=== PATIENT | female | born 1930 | race Caucasian/White ===

== ENCOUNTER 2020-10-30 07:06 | Inpatient (IN) | payer OTHER ==
[~2020-10-30] VITALS: Ht 162.6 cm; Wt 34.5 kg
[2020-10-30] MEDS ORDERED: IV NORMAL SALINE 500 ML BAG IV ONE (07:30)
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
--- NOTE | 2020-10-30 08:00 | NUR ---
[employer] HERE TO INVESTIGATE THE CASE
[2020-10-30 08:42] LABS: BASOPHILS % (AUTO) 0.8 % (0.0-2.0); EOSINOPHILS % (AUTO) 0.1 % (0.0-7.0); HEMATOCRIT 43.8 % (31.2-41.9); HEMOGLOBIN 14.4 g/dL (10.9-14.3); LYMPHOCYTES # (AUTO) 0.7 K/uL (20.0-40.0); LYMPHOCYTES % (AUTO) 20.1 % (20.5-51.5); MEAN CORPUSCULAR HEMOGLOBIN 30.9 uug (24.7-32.8); MEAN CORPUSCULAR HGB CONC 33 g/dL (32.3-35.6); MEAN CORPUSCULAR VOLUME 93.8 fL (75.5-95.3); MONOCYTES # (AUTO) 0.4 K/uL (2.0-10.0); MONOCYTES % (AUTO) 13.2 % (0.0-11.0); NEUTROPHILS # (AUTO) 2.2 K/uL (1.8-8.9); NEUTROPHILS % (AUTO) 65.8 % (38.5-71.5); PLATELET COUNT (AUTO) 82 K/uL (179-408); RED BLOOD CELL COUNT(AUTO) 4.67 MIL/uL (3.63-4.92); WHITE BLOOD COUNT (AUTO) 3.3 K/uL (3.8-11.8)
[2020-10-30 08:57] LABS: POTASSIUM 3.7 mmol/L (3.5-5.1)
--- NOTE | 2020-10-30 09:03 | NUR ---
PT REFUSES BREAKFAST ,REQUESTING ONLY TEA. PROVIDED.
--- NOTE | 2020-10-30 09:14 | NUR ---
Pt is unable to recall any of her meds and after multiple calls to Pt's daughter, unable to speak to her.
[2020-10-30 09:18] LABS: BILIRUBIN,TOTAL 0.8 mg/dL (0.2-1.0); TOTAL PROTEIN, SERUM 5.6 g/dL (6.4-8.2)
[2020-10-30] MEDS ORDERED: DILTIAZEM HCL 25 MG IV IV ONE (09:30)
[2020-10-30] MEDS ORDERED: DILTIAZEM HCL 25 MG IV ONE (09:30)
--- NOTE | 2020-10-30 10:53 | NUR ---
codie bob np atbedside, placed [facility] madi.
--- NOTE | 2020-10-30 10:55 | NUR ---
NIALL BERNABE NP ADMITTED THE PT TO [facility].
[2020-10-30 11:53] LABS: *BILIRUBIN,URIN NEGATIVE (NEGATIVE); *BLOOD, URINE NEGATIVE (NEGATIVE); *CLARITY,URINE SLIGHTLY CLOUDY (CLEAR); *COLOR,URINE YELLOW (YELLOW); *KETONES,URINE TRACE (NEGATIVE); *UROBILINOGEN,URINE 0.2 E.U./dl (NORMAL); LEUKOCYTE ESTERASE ,URINE NEGATIVE (NEGATIVE); NITRITE, URINE NEGATIVE (NEGATIVE); PH,URINE 5.5 (5.0-8.0); UGLUCOSE NEGATIVE (NEGATIVE)
[2020-10-30] MEDS ORDERED: ALBUTEROL SULFATE 8 GM HFA.AER.AD IH PRN (12:00)
[2020-10-30] MEDS ORDERED: ONDANSETRON 4 MG/2 ML VIAL IV PRN (12:00)
[2020-10-30] MEDS: DOXYCYCLINE HYCLATE 100 MG TABLET PO SCH ×2 (12:45→22:28)
[2020-10-30] MEDS: ENSURE ENLIVE (VAN) 240 ML LIQUID PO SCH ×2 (12:45→17:00)
[2020-10-30] MEDS ORDERED: DOXYCYCLINE HYCLATE 100 MG TABLET ONE ×2 (12:50→22:26)
[2020-10-30] MEDS ORDERED: CEFTRIAXONE /D5W 50ML IVPB **ER PYXIS IV ONE (12:51)
[2020-10-30] MEDS: CEFTRIAXONE 1 G in IV DEXTROSE 5% 50 ML IV SCH (12:53)
[2020-10-30] MEDS: ENOXAPARIN SODIUM 30 MG/0.3 ML DISP.SYRIN SUBCUT SCH (12:56)
[2020-10-30] MEDS ORDERED: ENOXAPARIN SODIUM 30 MG/0.3 ML DISP.SYRIN ONE (13:00)
--- NOTE | 2020-10-30 13:00 | NUR ---
pt refused lunch, had one cup of ensure and some apple sauce
[2020-10-30] MEDS: IV NS 1000 ML 1,000 ML IV PRN (13:38)
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
[2020-10-30 16:54] LABS: BACTERIA,URINE FEW /HPF (NONE SEEN); RBC,URINE 0-3 /HPF (0-3); SQUAMOUS EPITHELIAL CELL,UR FEW /HPF (NONE SEEN); URINE AMORPHOUS URATE FEW /HPF; WBC,URINE NONE SEEN /HPF (0-3)
--- NOTE | 2020-10-30 18:06 | NUR ---
pt refused dinner, had only a bottle of insure and some cranbery juice.
--- NOTE | 2020-10-30 19:06 | NUR ---
COVID 19 POSSIBLE OUT OF RATIO CHARTING.
--- NOTE | 2020-10-30 19:09 | NUR ---
PATIENT IN BED, NO ACUTE DISTRESS NOTED. WILL MONITOR.
[2020-10-30 19:13] LABS: BAND % (MANUAL) 10 % (0-10); LYMPHOCYTES % (MANUAL) 20 % (20-40); MONOCYTES % (MANUAL) 15 % (2-10); NEUTROPHILS % (MANUAL) 55 % (42-75)
--- NOTE | 2020-10-30 19:30 | NUR ---
PATIENT REMAINS IN AFIB AT THIS TIME, WILL MONITOR.
--- NOTE | 2020-10-30 19:55 | NUR ---
DR. ORTIZ AT BEDSIDE SPEAKING WITH PATIENT.
[2020-10-30] MEDS ORDERED: DEXAMETHASONE SOD PHOSPHATE 10 MG INJ ONE (22:26)
[2020-10-30] MEDS: DEXAMETHASONE SOD PHOSPHATE 10 MG INJ IV SCH (22:28)
--- NOTE | 2020-10-30 23:11 | NUR ---
Pt. admitted to tele , under care of Shamar BERNABE DNP Belongs List completed.
--- NOTE | 2020-10-31 00:44 | NUR ---
patient c/o of left side chest discomfort. EKG done AFIB RVR 120's.
--- NOTE | 2020-10-31 00:49 | NUR ---
Torsten paged, Erich Covarrubias DNP stonecutter assistant, awaiting call back.
--- NOTE | 2020-10-31 00:52 | NUR ---
Received call from Erich Covarrubias, give 10mg cardizem IVP x1 now, and observe if patient converts.
[2020-10-31] MEDS ORDERED: DILTIAZEM HCL 25 MG IV IV ONE (01:00)
[2020-10-31] MEDS ORDERED: DILTIAZEM HCL 25 MG IV ONE (01:01)
--- NOTE | 2020-10-31 01:52 | NUR ---
PATIENT HEART RATE 94, PATIENT DENIES ANY DISCOMFORT AT THIS TIME.
--- NOTE | 2020-10-31 01:55 | NUR ---
CHARGE NURSE VICTORINO NOTIFIED REGARDING HEART RATE.
--- NOTE | 2020-10-31 02:15 | NUR ---
Patient brought to Tele/covid unit from Er via rwaverly by staff nurse.Patient awake alert x 3 with 02 inhalation at 2LPM via NC saturating at 99%.Denies pain , no chest discomfort .IV access on the FA 22 g.No s/s of infiltration.Nichole catheter draining well with yellow urine output.Head to toe body assessment done .Noted with redness on sacral area and Rt heel redness .No skin breakdown.Placed patient on tele monitor.On isolation for covid.Call light with in reach .Will continue to monitor.
--- NOTE | 2020-10-31 02:19 | NUR ---
Trasnported patient to tele floor, no respiratory destress, no chest pain, handoff to ALFREDO Cisneros.
[2020-10-31 04:03] VITALS: BP 97/60
[2020-10-31] MEDS: IV NS 1000 ML 1,000 ML IV PRN ×2 (04:24→18:33)
[2020-10-31 06:16] VITALS: BP 105/60
--- NOTE | 2020-10-31 07:30 | NUR ---
Received patient in bed awake, alert and oriented times 4. Patient is on isolation precaution. Patient is on 2L of oxygen NC with no sign of respiratory distress. Patient is has low body fat with scapula protruding. Patient complains of pain and says that her daughter Lois doesn't help and tells her and her "take care of themselves". She reports that she doesn't each very often. Safety precautions are in place. Will continue to monitor.
[2020-10-31 08:30] LABS: BASOPHILS % (AUTO) 0.4 % (0.0-2.0); HEMATOCRIT 40.1 % (31.2-41.9); HEMOGLOBIN 13.4 g/dL (10.9-14.3); LYMPHOCYTES # (AUTO) 0.4 K/uL (20.0-40.0); LYMPHOCYTES % (AUTO) 15.9 % (20.5-51.5); MEAN CORPUSCULAR HEMOGLOBIN 31.2 uug (24.7-32.8); MEAN CORPUSCULAR HGB CONC 34 g/dL (32.3-35.6); MEAN CORPUSCULAR VOLUME 93.2 fL (75.5-95.3); MONOCYTES # (AUTO) 0.1 K/uL (2.0-10.0); MONOCYTES % (AUTO) 3.4 % (0.0-11.0); NEUTROPHILS # (AUTO) 1.9 K/uL (1.8-8.9); NEUTROPHILS % (AUTO) 80.3 % (38.5-71.5); PLATELET COUNT (AUTO) 85 K/uL (179-408); WHITE BLOOD COUNT (AUTO) 2.4 K/uL (3.8-11.8)
[2020-10-31] MEDS: ENSURE ENLIVE (VAN) 240 ML LIQUID PO SCH ×2 (08:32→17:30)
[2020-10-31] MEDS: DEXAMETHASONE SOD PHOSPHATE 10 MG INJ IV SCH (08:32)
[2020-10-31] MEDS: ACETAMINOPHEN 325 MG TABLET PO PRN ×2 (08:32→20:48)
[2020-10-31] MEDS: DOXYCYCLINE HYCLATE 100 MG TABLET PO SCH ×2 (08:32→20:48)
[2020-10-31] MEDS: ENOXAPARIN SODIUM 30 MG/0.3 ML DISP.SYRIN SUBCUT SCH (08:33)
--- NOTE | 2020-10-31 08:33 | NUR ---
Holding in Lovenox. Patient platelet level is 82. Will continue to monitor.
[2020-10-31 08:37] LABS: BILIRUBIN,TOTAL 0.4 mg/dL (0.2-1.0); CREATININE 0.8 mg/dL (0.6-1.3); PHOSPHOROUS 2.7 mg/dL (2.5-4.9); POTASSIUM 4.3 mmol/L (3.5-5.1); TOTAL PROTEIN, SERUM 5.4 g/dL (6.4-8.2)
[2020-10-31] MEDS ORDERED: ASPIRIN 81 MG TAB.CHEW PO SCH (09:00)
[2020-10-31 10:54] LABS: ABG BASE EXCESS -3.2 mmol/L; ABG HCO3 19.3 mmol/L; ABG PCO2 27.9 mmHg (35.0-45.0); ABG PH 7.458 (7.350-7.450); ABG PO2 205.5 mmHg (75.0-100.0); ABG SITE RIGHT RADIAL; ABG TOTAL HEMOGLOBIN 13.7 G/dL (12.0-16.0); COHb 0.3 % (0.5-1.5); MetHb 0.2 % (0.0-1.5); VENT MODE Nasal Cannula
[2020-10-31 11:25] LABS: THYROID STIMULATING HORMONE 0.517 mIU/mL (0.358-3.740)
[2020-10-31 11:36] VITALS: BP 149/71
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
[2020-10-31] MEDS: CEFTRIAXONE 1 G in IV DEXTROSE 5% 50 ML IV SCH (15:47)
[2020-10-31 16:00] VITALS: BP 100/58
[2020-10-31 17:25] LABS: BAND % (MANUAL) 10 % (0-10); LYMPHOCYTES % (MANUAL) 18 % (20-40); NEUTROPHILS % (MANUAL) 71 % (42-75)
--- NOTE | 2020-10-31 18:25 | NUR ---
Patient is resting in bed. No sign of distress noted. All medications given as ordered. Patient is still on 2L of O2 NC and saturating at 99%. Safety precautions in place. Will endorse to the oncoming nurse.
[2020-10-31 20:06] VITALS: BP 108/67
[2020-10-31] MEDS: METOPROLOL TARTRATE 25 MG TABLET PO SCH (20:48)
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
[2020-11-01 00:09] VITALS: BP 102/66
[2020-11-01 04:09] VITALS: BP 101/64
[2020-11-01 06:32] LABS: BASOPHILS % (AUTO) 0.1 % (0.0-2.0); HEMATOCRIT 41.6 % (31.2-41.9); HEMOGLOBIN 13.7 g/dL (10.9-14.3); LYMPHOCYTES # (AUTO) 0.5 K/uL (20.0-40.0); LYMPHOCYTES % (AUTO) 10.7 % (20.5-51.5); MEAN CORPUSCULAR HEMOGLOBIN 31.2 uug (24.7-32.8); MEAN CORPUSCULAR HGB CONC 33 g/dL (32.3-35.6); MEAN CORPUSCULAR VOLUME 94.8 fL (75.5-95.3); MONOCYTES # (AUTO) 0.2 K/uL (2.0-10.0); MONOCYTES % (AUTO) 3.5 % (0.0-11.0); NEUTROPHILS # (AUTO) 3.7 K/uL (1.8-8.9); NEUTROPHILS % (AUTO) 85.7 % (38.5-71.5); PLATELET COUNT (AUTO) 94 K/uL (179-408); RED BLOOD CELL COUNT(AUTO) 4.39 MIL/uL (3.63-4.92); WHITE BLOOD COUNT (AUTO) 4.4 K/uL (3.8-11.8)
[2020-11-01 06:45] LABS: CREATININE 0.9 mg/dL (0.6-1.3); MAGNESIUM 1.9 mg/dL (1.8-2.4); POTASSIUM 4.4 mmol/L (3.5-5.1)
[2020-11-01 06:51] LABS: LYMPHOCYTES % (MANUAL) 7 % (20-40); MONOCYTES % (MANUAL) 3 % (2-10); NEUTROPHILS % (MANUAL) 90 % (42-75)
[2020-11-01] MEDS: DEXAMETHASONE SOD PHOSPHATE 10 MG INJ IV SCH (07:45)
[2020-11-01] MEDS: METOPROLOL TARTRATE 25 MG TABLET PO SCH ×2 (08:03→20:33)
[2020-11-01] MEDS: DOXYCYCLINE HYCLATE 100 MG TABLET PO SCH ×2 (08:03→20:33)
[2020-11-01] MEDS: ENSURE ENLIVE (VAN) 240 ML LIQUID PO SCH ×3 (08:04→17:01)
[2020-11-01] MEDS: ENOXAPARIN SODIUM 30 MG/0.3 ML DISP.SYRIN SUBCUT SCH (08:06)
[2020-11-01] MEDS: IV NS 1000 ML 1,000 ML IV PRN (08:22)
[2020-11-01 12:00] VITALS: BP 97/63
[2020-11-01] MEDS: CEFTRIAXONE 1 G in IV DEXTROSE 5% 50 ML IV SCH (12:27)
[2020-11-01 16:00] VITALS: BP 100/69
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
--- NOTE | 2020-11-01 16:08 | NUR ---
AIDAN called and spoke with ANNALEE George, and informed Doris of the discussion this SW had with patient regarding DC plans. Doris stated that she had already spoken to patient's son, and was working on SNF options for the patient and patient's . AIDAN will continue to work with case management, the patient, and family, as needed, in order to coordinate a safe and proper discharge.
--- NOTE | 2020-11-01 20:00 | NUR ---
RECEIVED PATIENT AWAKE AWAKE IN BED. A/O X3. VERY PLEASANT WHEN APPROACHED. IVF INFUSING WELL TO RIGHT FA #20 GAUGE. ON O2 2L NC SATING WELL. NO RESP. DISTRESS NOTED. VS WNL. DENIES ANY PAIN OR DISCOMFORT. ON ISOLATION FOR COVID. ALL NEEDS ATTENDED.
[2020-11-01 20:13] VITALS: BP 103/63
[2020-11-02 00:44] VITALS: BP 99/72
[2020-11-02] MEDS: IV NS 1000 ML 1,000 ML IV PRN ×2 (02:49→17:31)
[2020-11-02 04:21] VITALS: BP 103/67
[2020-11-02 07:09] LABS: CREATININE 0.7 mg/dL (0.6-1.3); PHOSPHOROUS 2.7 mg/dL (2.5-4.9); POTASSIUM 4.6 mmol/L (3.5-5.1)
[2020-11-02 07:49] LABS: BASOPHILS % (AUTO) 0.2 % (0.0-2.0); HEMATOCRIT 37.7 % (31.2-41.9); HEMOGLOBIN 12.7 g/dL (10.9-14.3); LYMPHOCYTES # (AUTO) 0.4 K/uL (20.0-40.0); LYMPHOCYTES % (AUTO) 6.4 % (20.5-51.5); MEAN CORPUSCULAR HEMOGLOBIN 31.5 uug (24.7-32.8); MEAN CORPUSCULAR HGB CONC 34 g/dL (32.3-35.6); MEAN CORPUSCULAR VOLUME 93.6 fL (75.5-95.3); MONOCYTES # (AUTO) 0.2 K/uL (2.0-10.0); MONOCYTES % (AUTO) 3.6 % (0.0-11.0); NEUTROPHILS # (AUTO) 5.8 K/uL (1.8-8.9); NEUTROPHILS % (AUTO) 89.8 % (38.5-71.5); PLATELET COUNT (AUTO) 110 K/uL (179-408); RED BLOOD CELL COUNT(AUTO) 4.03 MIL/uL (3.63-4.92); WHITE BLOOD COUNT (AUTO) 6.5 K/uL (3.8-11.8)
[2020-11-02] MEDS: DOXYCYCLINE HYCLATE 100 MG TABLET PO SCH ×2 (08:19→20:55)
[2020-11-02] MEDS: METOPROLOL TARTRATE 25 MG TABLET PO SCH ×2 (08:19→20:59)
[2020-11-02] MEDS: DEXAMETHASONE SOD PHOSPHATE 10 MG INJ IV SCH (08:19)
[2020-11-02] MEDS: ENSURE ENLIVE (VAN) 240 ML LIQUID PO SCH ×3 (08:20→17:29)
[2020-11-02] MEDS: ENOXAPARIN SODIUM 30 MG/0.3 ML DISP.SYRIN SUBCUT SCH (08:28)
[2020-11-02 12:00] VITALS: BP 105/69
[2020-11-02] MEDS: CEFTRIAXONE 1 G in IV DEXTROSE 5% 50 ML IV SCH (12:30)
[2020-11-02 16:14] VITALS: BP 112/72
[2020-11-02 21:04] VITALS: BP 113/81
[2020-11-03 01:15] VITALS: BP 119/81
--- NOTE | 2020-11-03 02:34 | NUR ---
received patient lying in bed comfortably. aaox1-2. able to verbalize needs. PIV intact and patent. sinus tachycardia on tele monitor. medications administered without ASE. safety precautions provided. will continue to monitor.
[2020-11-03] MEDS: IV NS 1000 ML 1,000 ML IV PRN (06:12)
[2020-11-03 06:32] VITALS: BP 128/81
[2020-11-03 08:01] LABS: BASOPHILS % (AUTO) 0.2 % (0.0-2.0); HEMATOCRIT 43.6 % (31.2-41.9); HEMOGLOBIN 14.5 g/dL (10.9-14.3); LYMPHOCYTES # (AUTO) 0.6 K/uL (20.0-40.0); LYMPHOCYTES % (AUTO) 8.8 % (20.5-51.5); MEAN CORPUSCULAR HEMOGLOBIN 31.3 uug (24.7-32.8); MEAN CORPUSCULAR HGB CONC 33 g/dL (32.3-35.6); MEAN CORPUSCULAR VOLUME 94.5 fL (75.5-95.3); MONOCYTES # (AUTO) 0.4 K/uL (2.0-10.0); NEUTROPHILS # (AUTO) 5.8 K/uL (1.8-8.9); PLATELET COUNT (AUTO) 141 K/uL (179-408); RED BLOOD CELL COUNT(AUTO) 4.62 MIL/uL (3.63-4.92); WHITE BLOOD COUNT (AUTO) 6.9 K/uL (3.8-11.8)
[2020-11-03] MEDS: DOXYCYCLINE HYCLATE 100 MG TABLET PO SCH (08:11)
[2020-11-03] MEDS: METOPROLOL TARTRATE 25 MG TABLET PO SCH (08:11)
[2020-11-03] MEDS: ENSURE ENLIVE (VAN) 240 ML LIQUID PO SCH (08:14)
[2020-11-03] MEDS: ENOXAPARIN SODIUM 30 MG/0.3 ML DISP.SYRIN SUBCUT SCH (08:14)
[2020-11-03] MEDS: DEXAMETHASONE SOD PHOSPHATE 10 MG INJ IV SCH (08:15)
[2020-11-03 08:26] LABS: CREATININE 0.8 mg/dL (0.6-1.3); MAGNESIUM 2.1 mg/dL (1.8-2.4); PHOSPHOROUS 2.3 mg/dL (2.5-4.9); POTASSIUM 5.2 mmol/L (3.5-5.1)
[2020-11-03] MEDS ORDERED: QUETIAPINE FUMARATE 25 MG TABLET PO SCH (09:00)
[2020-11-03] MEDS ORDERED: DIGOXIN 500 MCG/2 ML AMP IV ONE (10:15)
[2020-11-03] MEDS ORDERED: DIGOXIN 250 MCG TABLET PO ONE (10:45)
[2020-11-03 12:04] VITALS: BP 113/81
--- NOTE | 2020-11-03 12:24 | NUR ---
dc orders received noted and carried out.dc fc per md orders and dc heplock .rn report given to the prison rn pt left the facility via ambulances in stable condition
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
[2020-11-05 05:53] LABS: LYMPHOCYTES % (MANUAL) 9 % (20-40); MONOCYTES % (MANUAL) 7 % (2-10); NEUTROPHILS % (MANUAL) 84 % (42-75)
== END 2020-11-03 12:27 | DRG 177 ==
LOC: ER 07:10 → TRANSITION 10:57 → TELE3 10-31 01:12
PROVIDERS: ADMIT Nurse Practitioner Acute Care; ATTEND Nurse Practitioner Acute Care
DX: U07.1 COVID-19 (principal); J12.82 Pneumonia due to coronavirus disease 2019; I21.A1 Myocardial infarction type 2; E43 Unspecified severe protein-calorie malnutrition; J96.01 Acute respiratory failure with hypoxia; J15.9 Unspecified bacterial pneumonia; R64 Cachexia; Z68.1 Body mass index [BMI] 19.9 or less, adult; D69.6 Thrombocytopenia, unspecified; E78.5 Hyperlipidemia, unspecified; E86.0 Dehydration; I10 Essential (primary) hypertension; I48.91 Unspecified atrial fibrillation; D72.810 Lymphocytopenia; Z87.01 Personal history of pneumonia (recurrent); Z98.82 Breast implant status; E88.09 Other disorders of plasma-protein metabolism, not elsewhere classified; M62.50 Muscle wasting and atrophy, not elsewhere classified, unspecified site
CPT/HCPCS: 36415; 36600; 70030-TC; 71045; 83605; 83615; 83735; 84100; 84443; 85025; 85730; 86140; 87040; 87086; 93005; A4663; G0378; J0696; J1100; J1650; J3490; J3535; J7030; J7040; J7060; U0003